=== PATIENT | female | born 1975 | race African-American/Black ===

== ENCOUNTER 2022-05-22 11:34 | Emergency (ER) | payer OTHER, SELFPAY ==
[2022-05-22] VITALS (8 sets, daily range): BP systolic 101–112; BP diastolic 74–84; PULSE 65–76; RESP 12–16; TEMP 36.6; O2SAT 98–100
--- NOTE | ~2022-05-22 | US_ITS ---
EXAMINATION: US paracentesis abd w/image DATE: 05/22/2022 15:36 INDICATION: Ascites. TECHNIQUE: The procedure and its risks, benefits, and alternatives were discussed with the patient. P otential risks discussed included bleeding and infection. The skin was prepped and draped in sterile fashion. 1% lidocaine was used for local anesthesia. Under ultrasound guidance, a 5 Fr catheter with trochar was advanced into the ascites in the left lower quadrant. Fluid was aspirated. The catheter w as removed, and a dressing was applied. There were no immediate complications. FINDINGS: Ultrasound images demonstrate ascites and the catheter within the fluid. IMPRESSION: 1. Successful ultrasound-guided paracentesis yielding 2650 mL of red fluid. Reviewed, dictated and finalized at location A.
--- NOTE | 2022-05-22 13:37 | ED.GENADULT ---
HPI - General Adult General Chief complaint: Abdominal Pain Stated complaint: swelling to abd History of Present Illness HPI narrative: 46-year-old female with history of stomach cancer presented to the emergency department for evaluation of worsening ascites. Patient states she was diagnosed with stomach cancer in August. Patient states she has not yet seen her oncologist and patient states she does not want chemotherapy. Patient received the majority of her care at [facility]. Patient was homeless until recently. Patient states since August she has had a therapeutic paracentesis approximately every week at [facility]. Patient is adamant about not receiving chemotherapy because she states chemotherapy will kill you faster than cancer . Related Data Allergies Allergy/AdvReac Type Severity Reaction Status Date / Time No Known Allergies Allergy Verified 05/22/22 11:54 Review of Systems Review of Systems: CONSTITUTIONAL: Denies fever, chills, or sweats. EYES: Denies visual changes, redness, or discharge. ENT: Denies rhinorrhea, congestion, sore throat, or otalgia. CARDIOVASCULAR: Denies chest pain, palpitations, or edema. RESPIRATORY: Denies cough or dyspnea. GASTROINTESTINAL: Abdominal fullness and pressure GENITOURINARY: Denies dysuria or hematuria. SKIN: Denies rash or itching. MUSCULOSKELETAL: Denies back pain, joint pain, or myalgia. NEUROLOGIC: Denies headache, numbness, or weakness. Course Course Emergency Course: Patient did have a therapeutic paracentesis in the emergency room. Patient felt significantly improved. Patient denied any abdominal pain afterwards. Patient had no tenderness to palpation. No concern for spontaneous bacterial peritonitis. Patient was strongly encouraged to continue have follow-up with her physicians including her oncologist. All questions and concerns were addressed. Vital Signs Vital signs: Vital Signs Pulse Rate 71 05/22/22 11:47 Respiratory Rate 12 05/22/22 11:47 Blood Pressure 105/74 05/22/22 11:47 Pulse Oximetry 100 05/22/22 11:47 Oxygen Delivery Room Air 05/22/22 11:47 Temperature 97.8 F 05/22/22 11:57 Pulse Rate 65 05/22/22 16:28 Respiratory Rate 16 05/22/22 16:28 Blood Pressure 112/77 05/22/22 16:28 Pulse Oximetry 99 05/22/22 16:28 Oxygen Delivery Room Air 05/22/22 11:47 Medical Decision Making Vital Signs Vital Signs: Vital Signs Pulse Rate 71 05/22/22 11:47 Respiratory Rate 12 05/22/22 11:47 Blood Pressure 105/74 05/22/22 11:47 Pulse Oximetry 100 05/22/22 11:47 Oxygen Delivery Room Air 05/22/22 11:47 Temperature 97.8 F 05/22/22 11:57 Pulse Rate 65 05/22/22 16:28 Respiratory Rate 16 05/22/22 16:28 Blood Pressure 112/77 05/22/22 16:28 Pulse Oximetry 99 05/22/22 16:28 Oxygen Delivery Room Air 05/22/22 11:47 Lab Data Lab results reviewed: Yes I reviewed the patient's lab results. Result diagrams: 05/22/22 13:51 05/22/22 13:51 Labs: Lab Results 05/22/22 05/22/22 05/22/22 Range/Units 13:51 13:51 13:51 WBC 7.4 (4.5-10.0) K/mm3 RBC 4.01 L (4.2-5.4) M/mm3 Hgb 9.5 L (12.0-15.0) g/dL Hct 31.7 L (37.0-47.0) % MCV 79.1 L (80-100) fl MCH 23.7 L (26-34) pg MCHC 30.0 L (32-36) g/dl RDW 19.0 H (11.5-14.5) % Plt Count 428 H (150-375) k/mm3 MPV 9.7 (7.4-10.4) fl Immature Gran % (Auto) 0.5 (0-0.5) % Neut % (Auto) 67.5 (45.5-73.1) % Lymph % (Auto) 24.8 (18.3-44.2) % [place] % (Auto) 6.7 (2.6-8.5) % Eos % (Auto) 0.4 (0-4.4) % Baso % (Auto) 0.1 L (0.2-1.2) % Lymph # (Auto) 1.84 (0.9-3.2) K/mm3 [place] # (Auto) 0.5 (0.1-0.6) K/mm3 Eos # (Auto) 0.0 (0-0.3) K/mm3 Baso # (Auto) 0.0 (0.0-0.1) K/mm3 Abs Immat Gran (auto) 0.04 H (0.00-0.031) K/mm3 Absolute Neuts (auto) 5.0 (1.3-6.7) K/mm3 Absolute Nucleated RBC 0.0 (0.0-0.012) K/mm3 Nucleate
[2022-05-22 14:09] LABS: Lactic Acid Reflex 1.8 mmol/L (0.7-2.0)
[2022-05-22 14:10] LABS: Basophils Percent Auto 0.1 % (0.2-1.2); Eosinophils Percent Auto 0.4 % (0-4.4); Hematocrit 31.7 % (37.0-47.0); Hemoglobin 9.5 g/dL (12.0-15.0); Immature Granulocyte Absolute 0.04 K/mm3 (0.00-0.031); Immature Granulocyte Percent A 0.5 % (0-0.5); Lymphocytes Absolute Auto 1.84 K/mm3 (0.9-3.2); Lymphocytes Percent Auto 24.8 % (18.3-44.2); Mean Corpuscular Hemoglobin 23.7 pg (26-34); Mean Corpuscular Volume 79.1 fl (80-100); Mean Platelet Volume 9.7 fl (7.4-10.4); Monocytes Absolute Auto 0.5 K/mm3 (0.1-0.6); Monocytes Percent Auto 6.7 % (2.6-8.5); Neutrophils Percent Auto 67.5 % (45.5-73.1); Platelet Count Result 428 k/mm3 (150-375); Red Blood Count 4.01 M/mm3 (4.2-5.4); White Blood Count 7.4 K/mm3 (4.5-10.0)
[2022-05-22 14:22] LABS: Alanine Aminotransferase 15 U/L (6-35); Albumin Level 3.3 g/dL (3.5-5.1); Alkaline Phosphatase 77 U/L (38-126); Anion Gap 12 mmol/L (8-16); Aspartate Amino Transferase 20 U/L (14-36); Bilirubin,Total 0.2 mg/dL (0.2-1.3); Blood Urea Nitrogen 6 mg/dL (7-17); Carbon Dioxide 30 mmol/L (22-30); Chloride 99 mmol/L (98-107); Estimated CRCL calculation 84 ml/min; Estimated Glomerular Filt Rate > 60; Glucose 82 mg/dL (65-110); Lipase 33 U/L (23-300); Potassium 3.9 mmol/L (3.4-5.0); Prothrombin Time 13.2 Seconds (11.1-14.7); Sodium 141 mmol/L (137-145)
[2022-05-22 14:23] LABS: Partial Thromboplastin Time 34.5 SECONDS (22.3-36.8)
--- NOTE | 2022-05-22 15:03 | PC.NURSE ---
Pt in radiology
[2022-05-22 16:04] LABS: Appearance Urine Slightly Cloudy (Clear); Bilirubin Urine Negative (Negative); Blood Urine Negative (Negative); Color Urine Yellow (Yellow); Glucose Urine UA Negative (Negative); Ketones Urine Negative (Negative); Leukocyte Esterase Ur 1+ LEU/UL (Negative); Nitrate Urine Negative (Negative); Protein Urine 1+ mg/dL (Negative); Specific Grav Ur 1.025 (1.001-1.035)
[2022-05-22 16:14] LABS: Budding Yeast Urine Present /hpf; Mucus Urine Heavy /lpf; RBC Urine 21-50 /hpf (0-2); Renal Epithelial Cells Urine Few /hpf (None Seen); Squamous Epithelial Cell Urine Few /hpf (Few); WBC Urine 51-75 /hpf
--- NOTE | 2022-05-22 16:22 | PCCCNOTE ---
Called by Anisa HERNANDEZ in ED regarding pt transportation. No feasible transportation found. Cab Voucher provided to [facility] at [address] [place] [address]
[2022-05-22 16:30] LABS: Add Urine Microscopic? YES
--- NOTE | 2022-05-22 16:38 | PC.NURSE ---
Care coordination dropped cab voucher, [employer] cab called and ride arranged for 30-40 minutes from now.
== END 2022-05-22 17:22 ==
PROVIDERS: Emergency Provider Emergency Medicine; PCP Internal Medicine
DX: R18.8 Other ascites (principal); C76.2 Malignant neoplasm of abdomen
CPT/HCPCS: 36415; 49083; 80053; 81001; 83605; 83690; 85025; 85610; 85730; 87086; 87088; 99284

== ENCOUNTER 2022-09-08 10:30 | Outpatient (RCR) | payer OTHER, SELFPAY ==
[2022-06-15 09:58] LABS: Mean Platelet Volume 8.8 fl (7.4-10.4); Platelet Count Result 501 k/mm3 (150-375)
[2022-06-15 10:15] LABS: INR 1.1; Prothrombin Time 14.1 Seconds (11.1-14.7)
[2022-07-27 09:54] LABS: Mean Platelet Volume 10.5 fl (7.4-10.4); Platelet Count Result 382 k/mm3 (150-375)
[2022-07-27 09:59] LABS: INR 1.1; Prothrombin Time 13.6 Seconds (11.1-14.7)
--- NOTE | ~2022-09-08 | US_ITS ---
EXAMINATION: US paracentesis abd w/image DATE: 08/10/2022 11:00 INDICATION: Ascites. TECHNIQUE: The procedure and its risks, benefits, and alternatives were discussed with the patient. P otential risks discussed included bleeding and infection. The skin was prepped and draped in sterile fashion. 1% lidocaine was used for local anesthesia. Under ultrasound guidance, a 5 Fr catheter with trochar was advanced into the ascites in the left lower quadrant. Fluid was aspirated. The catheter w as removed, and a dressing was applied. There were no immediate complications. FINDINGS: Ultrasound images demonstrate ascites and the catheter within the fluid. IMPRESSION: 1. Successful ultrasound-guided paracentesis yielding 650 mL of catherine-colored fluid. Reviewed, dictated and finalized at location A. OMER SERVICE TELLER
--- NOTE | ~2022-09-08 | US_ITS ---
EXAMINATION: US paracentesis abd w/image DATE: 07/20/2022 11:10 INDICATION: Ascites. TECHNIQUE: The procedure and its risks and benefits were discussed with the patient. Potential risks discussed included bleeding and infection. The skin was prepped and draped in sterile fashion. 1% lid ocaine was used for local anesthesia. Under ultrasound guidance, a 5 Fr catheter with trochar was adv anced into the ascites in the left lower quadrant. Fluid was aspirated into vacuum bottles. The yuliana ter was removed, and a dressing was applied. There were no immediate complications. FINDINGS: Ultrasound images demonstrate complex ascites with multiple internal septations. There are also scatt ered peritoneal implants consistent with metastatic disease in patient with known stomach cancer. Fin al images demonstrate the catheter within the fluid. IMPRESSION: 1. Successful ultrasound-guided paracentesis yielding 900 mL of dark reddish fluid. Reviewed, dictated and finalized at location A. NHOUSE GROWER IMPRESSION: 1. Successful ultrasound-guided paracentesis yielding 900 mL of dark reddish f luid.
--- NOTE | ~2022-09-08 | US_ITS ---
EXAMINATION: US paracentesis abd w/image DATE: 07/13/2022 11:13 INDICATION: Ascites. TECHNIQUE: The procedure and its risks, benefits, and alternatives were discussed with the patient. P otential risks discussed included bleeding and infection. The skin was prepped and draped in sterile fashion. 1% lidocaine was used for local anesthesia. Under ultrasound guidance, a 5 Fr catheter with trochar was advanced into the ascites in the right lower quadrant. Fluid was aspirated. The catheter was removed, and a dressing was applied. There were no immediate complications. FINDINGS: Ultrasound images demonstrate ascites and the catheter within the fluid. IMPRESSION: 1. Successful ultrasound-guided paracentesis yielding 1100 mL of yellow fluid. Reviewed, dictated and finalized at location A.
--- NOTE | ~2022-09-08 | US_ITS ---
EXAMINATION: US paracentesis abd w/image DATE: 06/15/2022 11:46 INDICATION: Ascites. TECHNIQUE: The procedure and its risks and benefits were discussed with the patient. Potential risks discussed included bleeding and infection. The skin was prepped and draped in sterile fashion. 1% lid ocaine was used for local anesthesia. Under ultrasound guidance, a 5 Fr catheter with trochar was adv anced into the ascites in the left lower quadrant. Fluid was aspirated into vacuum bottles. The yuliana ter was removed, and a dressing was applied. There were no immediate complications. FINDINGS: Ultrasound images demonstrate ascites and the catheter within the fluid. IMPRESSION: 1. Successful ultrasound-guided paracentesis yielding 2500 mL of clear dark reddish fluid. Reviewed, dictated and finalized at location A. IMPRESSION: 1. Successful ultrasound-guided paracentesis yielding 2500 mL of clear dark re ddish fluid.
--- NOTE | ~2022-09-08 | US_ITS ---
EXAMINATION: US paracentesis abd w/image DATE: 06/29/2022 10:36 INDICATION: Ascites. TECHNIQUE: The procedure and its risks and benefits were discussed with the patient. Potential risks discussed included bleeding and infection. The skin was prepped and draped in sterile fashion. 1% lid ocaine was used for local anesthesia. Under ultrasound guidance, a 5 Fr catheter with trochar was adv anced into the ascites in the left lower quadrant. Fluid was aspirated into vacuum bottles. The yuliana ter was removed, and a dressing was applied. There were no immediate complications. FINDINGS: Ultrasound images demonstrate ascites and the catheter within the fluid. IMPRESSION: 1. Successful ultrasound-guided paracentesis yielding 2200 mL of clear dark reddish fluid. Reviewed, dictated and finalized at location A. IMPRESSION: 1. Successful ultrasound-guided paracentesis yielding 2200 mL of clear dark re ddish fluid.
--- NOTE | ~2022-09-08 | US_ITS ---
EXAMINATION: US paracentesis abd w/image DATE: 07/06/2022 11:35 INDICATION: Ascites. TECHNIQUE: The procedure and its risks and benefits were discussed with the patient. Potential risks discussed included bleeding and infection. The skin was prepped and draped in sterile fashion. 1% lid ocaine was used for local anesthesia. Under ultrasound guidance, a 5 Fr catheter with trochar was adv anced into the ascites in the left lower quadrant. Fluid was aspirated into vacuum bottles. The yuliana ter was removed, and a dressing was applied. There were no immediate complications. FINDINGS: Ultrasound images demonstrate ascites and the catheter within the fluid. Some relatively thin smooth curvilinear echogenic internal septations are seen within the ascites. IMPRESSION: 1. Moderate amount of likely complex ascites with multiple thin smooth internal septations. 2. Successful ultrasound-guided paracentesis yielding 1100 mL of cloudy orange-colored fluid. Reviewed, dictated and finalized at location A. IMPRESSION: 1. Moderate amount of likely complex ascites with multiple thin smooth internal septations. 2. Successful ultrasound-guided paracentesis yielding 1100 mL of cloudy orange- colored fluid.
--- NOTE | ~2022-09-08 | US_ITS ---
EXAMINATION: US paracentesis abd w/image DATE: 07/27/2022 11:22 INDICATION: Ascites. TECHNIQUE: The procedure and its risks, benefits, and alternatives were discussed with the patient. P otential risks discussed included bleeding and infection. The skin was prepped and draped in sterile fashion. 1% lidocaine was used for local anesthesia. Under ultrasound guidance, a 5 Fr catheter with trochar was advanced into the ascites in the right lower quadrant. Fluid was aspirated. The catheter was removed, and a dressing was applied. There were no immediate complications. FINDINGS: Ultrasound images demonstrate ascites and the catheter within the fluid. IMPRESSION: 1. Successful ultrasound-guided paracentesis yielding 450 mL of yellow fluid. Reviewed, dictated and finalized at location A. NARRATOR
--- NOTE | ~2022-09-08 | US_ITS ---
EXAMINATION: US paracentesis abd w/image DATE: 08/03/2022 11:07 INDICATION: Ascites. TECHNIQUE: The procedure and its risks, benefits, and alternatives were discussed with the patient. P otential risks discussed included bleeding and infection. The skin was prepped and draped in sterile fashion. 1% lidocaine was used for local anesthesia. Under ultrasound guidance, a 5 Fr catheter with trochar was advanced into the ascites in the left lower quadrant. Fluid was aspirated. The catheter w as removed, and a dressing was applied. There were no immediate complications. FINDINGS: Ultrasound images demonstrate ascites and the catheter within the fluid. IMPRESSION: 1. Successful ultrasound-guided paracentesis yielding 900 mL of red fluid. Reviewed, dictated and finalized at location A. ROL TOWER RADIO OPERATOR
== END 2022-09-13 23:59 | disposition home or self-care (01) ==
LOC: ANHIMG 10:30
PROVIDERS: Radiology Diagnostic Radiology; PCP Internal Medicine; Visit Provider Family Medicine
DX: C16.9 Malignant neoplasm of stomach, unspecified (principal)
CPT/HCPCS: 36415; 49083; 85049; 85610